=== PATIENT | male | born 1990 | race African-American/Black ===

== ENCOUNTER 2017-01-09 16:22 | Outpatient (CLI) | payer OTHER ==
--- NOTE | 2017-01-10 08:42 | XRay Report ---
CHEST TWO VIEWS: 01/09/17 16:22:00 CLINICAL: Family history of lung cancer. COMPARISON: None FINDINGS: Normal heart and pulmonary vasculature. The lungs are hyperexpanded and clear except for a 5-6 mm calcified granuloma in the left lower lobe.Mild degenerative change in the spine. Normal soft tissues. IMPRESSION: Mild COPD and old granulomatous disease.
== END 2017-01-09 16:23 | disposition home or self-care (01) ==
LOC: XRAY 16:22
PROVIDERS: ATTEND Internal Medicine
DX: J44.9 Chronic obstructive pulmonary disease, unspecified (principal); J84.10 Pulmonary fibrosis, unspecified; M47.899 Other spondylosis, site unspecified; Z80.2 Family history of malignant neoplasm of other respiratory and intrathoracic organs
CPT/HCPCS: 71020

== ENCOUNTER 2017-01-16 13:06 | Outpatient (CLI) | payer OTHER ==
[2017-01-16] MEDS ORDERED: NACL ONE (15:48)
--- NOTE | 2017-01-16 16:13 | Cat Scan Report ---
CT of the chest with IV contrast. History: Lung nodule seen on recent chest x-ray. Findings: The mediastinal and hilar regions are normal. A densely calcified 1 cm in diameter granuloma is seen in the posterior aspect of the left lower lobe. No additional pulmonary nodules or masses are seen. There is no pleural fluid. The axillary regions are normal. No significant bony findings are seen. Impression: Small left lower lobe pulmonary granuloma, otherwise unremarkable study.
== END 2017-01-16 13:07 | disposition home or self-care (01) ==
LOC: CT 13:06
PROVIDERS: ATTEND Internal Medicine
DX: J84.10 Pulmonary fibrosis, unspecified (principal); J98.4 Other disorders of lung; R93.8 Abnormal findings on diagnostic imaging of other specified body structures; Z80.1 Family history of malignant neoplasm of trachea, bronchus and lung
CPT/HCPCS: 71260